=== PATIENT | female | born 1985 | race Caucasian/White ===

== ENCOUNTER 2017-03-17 17:27 | Inpatient (IN) | payer BC ==
[~2017-03-17] VITALS: Ht 160 cm; Wt 104.5 kg
[~2017-03-17 17:27] MED LIST: ADDERALL XR 3030 MG PO; BACLOFEN10 MG PO; DIAZEPAM5 MG PO; FIORICET,ESG1 TABLET PO; FLEXERIL5 MG PO; FLOMAX0.4 MG PO; GLUCOPHAGE500 MG PO; LEXAPRO10 MG PO; NAPROSYN500 MG PO; PERCOCET 5/31 TABLET PO; SYMBICORT60 INHALA1 IH; SYMBICORT60 INHALAT IH; VENTOLIN17 GM IH; VYVANSE30 MG PO; YAZ1 TABLET PO; ZOFRAN ODT4 MG PO; ZOFRAN4 MG PO
[2017-03-17 17:52] VITALS: BP 131/93
[2017-03-17] MEDS ORDERED: PRENATAL COMPL1 EACH PO (18:16)
[2017-03-17] MEDS ORDERED: TYLENOL EXTRA500 MG PO (18:18)
[2017-03-17 18:58] VITALS: BP 128/80
[2017-03-17 19:22] LABS: BASOPHIL COUNT 0.1 K/uL (0-0.1); EOSINOPHIL COUNT 0.1 K/uL (0-0.3); HEMATOCRIT 31.1 % (36.0-46.0); IMMATURE GRANULOCYTE (%) 0.8 % (0.0-0.7); IMMATURE GRANULOCYTE COUNT 0.1 K/uL; LYMPHOCYTE COUNT 2.9 K/uL (1.0-2.8); MCH 26.5 PG (29.0-34.0); MCHC 32.8 G/DL (30.0-36.0); MCV 80.8 FL (83-99); MEAN PLAT.VOLUME 12.4 uM^3 (9.5-12.4); MONOCYTE (%) 8.8 % (3-12); NEUTROPHIL (%) 63.2 % (45-76); PLATELET COUNT 254 K/uL (156-360); RBC DIS.WIDTH-CV 14.1 % (11.8-14.6); RBC DIS.WIDTH-SD 40.9 % (39-53); RED BLOOD COUNT 3.85 M/uL (3.80-5.20); WHITE BLOOD COUNT 11.1 K/uL (4.1-10.2)
[2017-03-17 23:55] VITALS: BP 109/58
[2017-03-18] VITALS (33 sets, daily range): BP systolic 105–154; BP diastolic 54–92
[2017-03-19] VITALS (12 sets, daily range): BP systolic 98–176; BP diastolic 50–101
[2017-03-19] MEDS ORDERED: ZOFRAN4 MG PO (07:56)
[2017-03-19] MEDS ORDERED: IBUPROFEN800 MG PO (07:56)
[2017-03-19] MEDS ORDERED: ENDOCET 5-3251 EACH PO (07:56)
[2017-03-20 03:15] VITALS: BP 102/65
[2017-03-20 06:49] LABS: EOSINOPHIL (%) 0.5 % (0-5); EOSINOPHIL COUNT 0.1 K/uL (0-0.3); HEMATOCRIT 23.7 % (36.0-46.0); IMMATURE GRANULOCYTE COUNT 0.2 K/uL; INSTRUMENT ABS NEUTROPHIL CT 13.6 K/uL; LYMPHOCYTE COUNT 2.7 K/uL (1.0-2.8); MCH 27.1 PG (29.0-34.0); MCHC 32.9 G/DL (30.0-36.0); MCV 82.3 FL (83-99); MEAN PLAT.VOLUME 12.2 uM^3 (9.5-12.4); MONOCYTE (%) 5.5 % (3-12); NEUTROPHIL (%) 77.4 % (45-76); NEUTROPHIL COUNT 13.6 K/uL (1.8-6.4); PLATELET COUNT 194 K/uL (156-360); RBC DIS.WIDTH-CV 14.5 % (11.8-14.6); RBC DIS.WIDTH-SD 42.2 % (39-53); WHITE BLOOD COUNT 17.6 K/uL (4.1-10.2)
[2017-03-20 06:53] LABS: RED BLOOD COUNT 2.88 M/uL (3.80-5.20)
[2017-03-20 07:57] VITALS: BP 114/65
[2017-03-20] MEDS ORDERED: BISAC-EVAC10 MG PR (08:02)
[2017-03-20] MEDS ORDERED: ONDANSETRON ODT4 MG PO (08:02)
[2017-03-20 11:55] VITALS: BP 109/63
[2017-03-20 15:10] VITALS: BP 118/62
[2017-03-20 19:15] VITALS: BP 117/65
[2017-03-20 22:57] VITALS: BP 101/65
[2017-03-21 03:10] VITALS: BP 96/64
[2017-03-21 07:38] VITALS: BP 119/65
== END 2017-03-21 16:30 | disposition home or self-care (01) | DRG 765 ==
LOC: LDRP-OP 17:27 → 2WEST 17:29 → LDRP-OP 04-09 15:44
PROVIDERS: Obstetrics & Gynecology; Obstetrics & Gynecology Gynecology
PROC: 10D00Z1 Extraction of Products of Conception, Low, Open Approach (ICD-10-PCS; principal; 2017-03-17)
PROC: 3E0P7GC Introduction of Other Therapeutic Substance into Female Reproductive, Via Natural or Artificial Opening (ICD-10-PCS; principal; 2017-03-17)
PROC: 10907ZC Drainage of Amniotic Fluid, Therapeutic from Products of Conception, Via Natural or Artificial Opening (ICD-10-PCS; principal; 2017-03-17)
PROC: 3E033VJ Introduction of Other Hormone into Peripheral Vein, Percutaneous Approach (ICD-10-PCS; principal; 2017-03-17)
DX: O99.824 Streptococcus B carrier state complicating childbirth (principal); O76 Abnormality in fetal heart rate and rhythm complicating labor and delivery; O99.52 Diseases of the respiratory system complicating childbirth; O48.0 Post-term pregnancy; O99.214 Obesity complicating childbirth; E66.01 Morbid (severe) obesity due to excess calories; J45.909 Unspecified asthma, uncomplicated; Z3A.41 41 weeks gestation of pregnancy; Z68.41 Body mass index [BMI] 40.0-44.9, adult; Z37.0 Single live birth
CPT/HCPCS: 85025; 85025 91; 86850; 86900; 86901; C1755; G0378; J0690; J1170; J2175; J2405; J2540; J2765; J7120